=== PATIENT | female | born 2000 | race Two or more races ===

== ENCOUNTER 2025-01-18 14:24 | Emergency (ER) | payer MEDICAID, SELFPAY ==
[2025-01-18 14:29] VITALS: BP 132/80; PULSE 133; RESP 19; TEMP 37; O2SAT 100; BMI 43.2
[2025-01-18 14:50] VITALS: PULSE 116; RESP 16; O2SAT 99
--- NOTE | 2025-01-18 15:13 | PD.EDCHEST ---
ED Chest Pain RME/HPI General Chief Complaint: Chest Pain Stated Complaint: PALPITATIONS Time Seen by Provider: 01/18/25 14:46 Arrival date/time: 01/18/25 14:24 This is a 24-year-old female that is brought in by ambulance with complaints of shortness of breath, palpitations and anxiety. Patient states she was smoking her vape pen and overdid it. Patient states she has a lot of stuff going on right now so she did extra than she typically does. Per patient boyfriend patient went to the dispensary recently. Patient not having thoughts of hurting herself or hurting other people. Patient denies fever, nausea, vomiting, abdominal pain, diarrhea, chest pain, shortness of breath, dizziness at the time of assessment. Related Data Previous Rx's ?Medication ?Instructions ?Recorded hydrocodone 5 mg-acetaminophen 325 1 tab PO QDAY #14 tabs 07/02/ mg tablet ([facility]) fluconazole 150 mg tablet 150 mg PO Q3D 2 doses #2 tabs 06/06/24 Allergies Allergy/AdvReac Type Severity Reaction Status Date / Time No Known Allergies Allergy Verified 08/25/22 21:57 Course Vital Signs Vital signs: Vital Signs Temperature 98.6 F 01/18/25 14:29 Pulse Rate 133 H 01/18/25 14:29 Respiratory Rate 19 01/18/25 14:29 Blood Pressure 132/80 H 01/18/25 14:29 Pulse Oximetry (%) 100 01/18/25 14:29 Oxygen Delivery Method Room Air 01/18/25 14:29 Chest Pain MDM Narrative MDM Narrative:: Patient states she felt better shortly after coming to the emergency room. I explained to patient at length not using vape pen. Patient states she typically uses vape pen and never has a problem. Patient states she will not use it anymore today. Patient denies any symptoms at this time. Patient reports that she wants to go home now. Patient told to come back to the emergency room if symptoms change or worsen. Heart rate came down to 108 at the time of discharge. Patient ambulatory steady gait. Discharge Plan Plan Patient Disposition: HOME (Self Care) Patient condition on transfer: Stable Prescriptions/Referrals Prescriptions/Med Rec: No Action hydrocodone-acetaminophen [[facility]] 5-325 mg tablet 1 tab PO QDAY MDD 1 tab Qty: 14 0RF fluconazole 150 mg tablet 150 mg PO Q3D Qty: 2 0RF Problem List Clinical Impression: Marijuana use, Anxiety Patient/Caregiver Discharge Instructions Discharge Activity: activity as tolerated Education Materials: ED Anxiety Reaction Additional Instructions: Follow up with primary provider in 1-2 days. Come back to ED if symptoms change or worsen Print Language: Vietnamese Stand Alone Forms: Lucy Award Info., Patient Portal Info Letter PA/SCHOOL PSYCHOLOGIST Supervising Physician PA/SCHOOL PSYCHOLOGIST Supervising Physician: catherine
[2025-01-18 15:22] VITALS: BP 121/77; PULSE 99; RESP 16; TEMP 37; O2SAT 100
== END 2025-01-19 09:25 | disposition home or self-care (01) ==
LOC: SERX 15:48
PROVIDERS: Emergency Provider Emergency Medicine; PCP Family Medicine
DX: F41.9 Anxiety disorder, unspecified (principal); F12.90 Cannabis use, unspecified, uncomplicated
CPT/HCPCS: 99283